=== PATIENT | female | born 2000 | race Two or more races ===

== ENCOUNTER 2019-05-08 17:43 | Emergency (ER) | payer OTHER ==
[2019-05-08 17:59] VITALS: BP 123/72; PULSE 76; TEMP 97.8; BMI 30.3
--- NOTE | 2019-05-08 18:12 | PDOC ---
History of Present Illness - General Chief Complaint: Pain Stated Complaint: L RING FINGER PAIN Time Seen by Provider: 05/08/19 17:54 History Source: Patient Exam Limitations: No Limitations - History of Present Illness Initial Comments: 05/08/19 18:19 Chief complaint: Finger swelling Patient is 18-year-old female who has 4 days of left ring finger swelling along the nail base. Patient denies biting her nails or picking the cuticle. Patient has no fever and otherwise feels well. Never had this before. GENERAL/CONSTITUTIONAL: No fever, weakness. dizziness HEAD, EYES, EARS, NOSE AND THROAT: No change in vision. No ear pain or discharge. No sore throat. CARDIOVASCULAR: No chest pain RESPIRATORY: No shortness of breath or cough GASTROINTESTINAL: No pain, nausea, vomiting, diarrhea or constipation GENITOURINARY: No dysuria MUSCULOSKELETAL: No neck or back pain SKIN: No rash, + finger swelling NEUROLOGIC: No headache, vertigo, loss of consciousness, or loss of sensation. GENERAL: The patient is awake, alert, and fully oriented, in no acute distress. HEAD: Normal with no signs of trauma. EYES: Pupils equal, round and reactive to light, sclera anicteric, conjunctiva clear. ENT: pharynx: no erythema, no exudate, uvula midline NECK: supple CHEST: clear, nontender, rr EXTREMITIES: Left ring finger with paronychia on the lateral aspect of the nail base, no signs of extending cellulitis with minimal erythema around the area affected. Full range of motion, no signs of felon or tenosynovitis. Rest of extremities, normal range of motion, no edema. NEUROLOGICAL: Normal speech, normal gait. SKIN: Warm, Dry Past History - Past Medical History Allergies/Adverse Reactions: Allergies Allergy/AdvReac Type Severity Reaction Status Date / Time No Known Allergies Allergy Verified 05/08/19 17:56 Home Medications: Ambulatory Orders Oxycodone HCl/Acetaminophen [Percocet 5/325 -] 1 tab PO Q4H #12 tablet 03/21/15 COPD: No CHF: No - Immunization History Immunization Up to Date: Yes - Psycho Social/Smoking Cessation Hx Smoking History: Never smoked Have you smoked in the past 12 months: No Information on smoking cessation initiated: No Hx Alcohol Use: No Drug/Substance Use Hx: No Substance Use Type: None *Physical Exam - Vital Signs Last Vital Signs Temp Pulse Resp BP Pulse Ox 97.8 F 76 16 123/72 100 05/08/19 17:53 05/08/19 17:53 05/08/19 17:53 05/08/19 17:53 05/08/19 17:53 Procedures - Incision and Drainage I&D Site: Left: Paronychia Betadine cleansed: Yes Anesthesia: 2% Lidocaine (digital block) Blade Size: 11 Complications: none Progress: 05/08/19 18:37 bacitracin and bandaid Medical Decision Making - Medical Decision Making 05/08/19 18:21 Healthy 18-year-old female with paronychia to left ring finger, will do incision and drainage, patient does not need antibiotics. Discussed issues, findings, results, applicable medications and treatments and follow-up. All these were understood and all questions were answered Discharge - Discharge Information Problems reviewed: Yes Clinical Impression/Diagnosis: Paronychia Condition: Stable Disposition: HOME - Admission No - Additional Discharge Information Prescription Drug Monitoring Program (I-STOP) results: I-STOP not reviewed - Follow up/Referral - Patient Discharge Instructions Patient Printed Discharge Instructions: DI for Paronychia Additional Instructions: Clean with soap and water 2-3 times daily, continue to soak in warm water, 2-3 times daily for 20 minutes each, apply bacitracin Have her reevaluated if redness, pus, fever or getting worse Followup with your doctor - Post Discharge Activity
== END 2019-05-08 18:31 | disposition home or self-care (01) ==
LOC: JERFT 17:43
PROC: 0H9GXZZ Drainage of Left Hand Skin, External Approach (ICD-10-PCS; principal; 2019-05-08)
DX: L03.012 Cellulitis of left finger (principal)
CPT/HCPCS: 99281-25

== ENCOUNTER 2019-06-02 23:14 | Emergency (ER) | payer OTHER ==
[2019-06-02 23:31] VITALS: BP 120/84; PULSE 88; TEMP 98.3; BMI 31.3
[2019-06-03] MEDS ORDERED: ASPIRIN 81 MG CHEWABLE TABLETS PO ONE (00:35)
[2019-06-03] MEDS ORDERED: ACETAMINOPHEN 325 MG TABLET (FP) PO ONE (00:42)
[2019-06-03] MEDS ORDERED: ACETAMINOPHEN 325 MG TABLET (FP) ONE (00:43)
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
== END 2019-06-03 03:31 | disposition home or self-care (01) ==
LOC: JER 23:14
DX: Y04.8XXA Assault by other bodily force, initial encounter (principal); Y93.89 Activity, other specified; Y92.410 Unspecified street and highway as the place of occurrence of the external cause; Q75.1 Craniofacial dysostosis
CPT/HCPCS: 70486-TC; 99282-25